=== PATIENT | male | born 1935 | race Caucasian/White ===

== ENCOUNTER → 2016-10-20 | Outpatient (CLI) | payer BC ==
[~2016-10-20] MED LIST: ASPI81TA28 PO; CHOL4POW6; EZET10TA47 PO; GLIM1TAB2 PO; METF-384 PO; METO1TAB66 PO; MULT-506 PO; PSYL55.43 PO
[2016-10-20 12:43] LABS: BLOOD UREA NITROGEN 11 mg/dl (7-18); BUN/CREATININE RATIO 12.5 (10-20); CALCIUM 9.3 mg/dl (8.5-10.1); CARBON DIOXIDE 31 mmol/L (21-32); CHLORIDE 101 mmol/L (98-107); CREATININE 0.91 mg/dl (0.60-1.40); GLUCOSE 145 mg/dl (70-99); POTASSIUM 4.3 mmol/L (3.5-5.1); SODIUM 140 mmol/L (136-145)
[2016-10-20 12:48] LABS: CHOLESTEROL/HDL RATIO 2.6; PROSTATE SPECIFIC ANTIGEN 0.607 ng/ml (0.000-4.000)
[2016-10-20 12:54] LABS: ESTIMATED AVERAGE GLUCOSE 148 mg/dl; HA1C FLAG Normal (Normal)
== END | disposition home or self-care (01) ==
LOC: C.LABPVFM 07:41
PROVIDERS: ATTEND Nurse Practitioner
DX: E11.9 Type 2 diabetes mellitus without complications (principal); Z12.5 Encounter for screening for malignant neoplasm of prostate; E78.00 Pure hypercholesterolemia, unspecified

== ENCOUNTER → 2017-04-19 | Outpatient (CLI) | payer BC ==
[2017-04-19 13:04] LABS: ESTIMATED AVERAGE GLUCOSE 151 mg/dl; HA1C FLAG Normal (Normal)
[2017-04-19 13:10] LABS: ALT/SGPT 84 U/L (12-78); BLOOD UREA NITROGEN 15 mg/dl (7-18); CARBON DIOXIDE 31 mmol/L (21-32); CHLORIDE 103 mmol/L (98-107); GLUCOSE 144 mg/dl (70-99); POTASSIUM 4.2 mmol/L (3.5-5.1); SODIUM 136 mmol/L (136-145)
[2017-04-19 13:12] LABS: ALB/GLOB RATIO 1.1 (0.9-2)
[2017-04-19 13:13] LABS: ALKALINE PHOSPHATASE 92 U/L (45-117); AST/SGOT 66 U/L (15-37)
== END | disposition home or self-care (01) ==
LOC: C.LABPVFM 07:55
PROVIDERS: ATTEND Internal Medicine Cardiovascular Disease
DX: E78.00 Pure hypercholesterolemia, unspecified (principal); I10 Essential (primary) hypertension; E11.9 Type 2 diabetes mellitus without complications; I25.10 Atherosclerotic heart disease of native coronary artery without angina pectoris

== ENCOUNTER → 2017-05-10 | Outpatient (CLI) | payer BC ==
--- NOTE | 2017-05-10 09:14 | DIAGNOSTIC IMAGING REPORT ---
ABDOMEN LIMITED (US) HISTORY: 82 years-old Male ELEVATED BILIRUBIN COMPARISON: Ultrasound of the abdominal right upper quadrant 12/29/2009 TECHNIQUE: Multiple real-time static images of the abdominal right upper quadrant were obtained assessing grayscale appearance and color flow. FINDINGS: Pancreas is partially disturbed by bowel gas with the imaged portions appearing unremarkable. Liver appears prominent in size with diffuse fatty infiltration. There is nonspecific 0.4 cm calcification of the mid liver. Focal areas of decreased echogenicity are seen near the kori hepatis involving the liver measuring up to 1.1 cm indeterminate without internal vascularity and may reflect areas of focal fatty sparing. Gallbladder is unremarkable without shadowing cholelithiasis, gallbladder wall thickening or pericholecystic fluid collections. A positive sonographic Grace sign was not reported. Common bile duct is within normal limits for patient's age, 0.6 cm. The imaged right kidney is unremarkable without hydronephrosis or shadowing calculus. IMPRESSION: 1. Unremarkable sonographic appearance of the gallbladder without evidence of cholelithiasis or acute cholecystitis. 2. Fatty infiltration of the liver with nonspecific areas of decreased echogenicity near the kori hepatis which may reflect areas of fatty sparing measuring up to approximately 1.0 cm. 3. No biliary ductal dilation. The above report was generated using voice recognition software. It may contain grammatical, syntax or spelling errors. Electronically signed by: Agustin Machuca M.D. 05/10/2017 9:12 AM Dictated Date/Time: 05/10/2017 9:08 AM
== END | disposition home or self-care (01) ==
LOC: C.ULTR 08:21
PROVIDERS: ATTEND Nurse Practitioner
DX: R17 Unspecified jaundice (principal); K76.0 Fatty (change of) liver, not elsewhere classified

== ENCOUNTER → 2017-05-24 | Outpatient (CLI) | payer BC ==
[2017-05-24 17:55] LABS: ALT/SGPT 64 U/L (12-78); BLOOD UREA NITROGEN 13 mg/dl (7-18); BUN/CREATININE RATIO 11.5 (10-20); CALCIUM 9.5 mg/dl (8.5-10.1); CARBON DIOXIDE 28 mmol/L (21-32); CHLORIDE 100 mmol/L (98-107); GLUCOSE 215 mg/dl (70-99); POTASSIUM 4.3 mmol/L (3.5-5.1); SODIUM 134 mmol/L (136-145)
[2017-05-24 17:58] LABS: ALKALINE PHOSPHATASE 114 U/L (45-117); AST/SGOT 48 U/L (15-37)
== END | disposition home or self-care (01) ==
LOC: C.LABPVFM 13:16
PROVIDERS: ATTEND Nurse Practitioner
DX: R17 Unspecified jaundice (principal)

== ENCOUNTER → 2017-11-14 | Outpatient (CLI) | payer BC ==
[~2017-11-14] MED LIST changes: +METO-452 PO; -METO1TAB66 PO
--- NOTE | 2017-11-14 10:24 | DIAGNOSTIC IMAGING REPORT ---
ABDOMEN FOR HERNIA CLINICAL HISTORY: 82 years-old Male presenting with K40.90 Inguinal herniaattn L inguinal [id number]. TECHNIQUE: Real-time grayscale ultrasound imaging of the left inguinal canal was performed for a focused evaluation at the site of clinical concern. COMPARISON: None. FINDINGS: A heterogeneously hypoechoic hernia sac is evident in the left inguinal canal compatible with fat. This does not reduce with ultrasound probe compression. A defect measuring 1.2 cm noted at the internal inguinal canal. No fluid or bowel in the hernia sac. IMPRESSION: 1. Nonreducible fat-containing left inguinal hernia without evidence of significant inflammatory change to suggest strangulation. Electronically signed by: Ceferino Dickens M.D. 11/14/2017 10:23 AM Dictated Date/Time: 11/14/2017 10:22 AM
== END | disposition home or self-care (01) ==
LOC: C.ULTR 09:41
PROVIDERS: ATTEND Nurse Practitioner
DX: K40.90 Unilateral inguinal hernia, without obstruction or gangrene, not specified as recurrent (principal)

== ENCOUNTER → 2018-05-07 | Outpatient (CLI) | payer BC ==
[2018-05-07 13:12] LABS: HEMOGLOBIN A1C 7.8 % (4.5-5.6)
[2018-05-07 15:01] LABS: ALKALINE PHOSPHATASE 98 U/L (45-117); ALT/SGPT 54 U/L (12-78); AST/SGOT 58 U/L (15-37); BLOOD UREA NITROGEN 13 mg/dl (7-18); CALCIUM 9.5 mg/dl (8.5-10.1); CARBON DIOXIDE 31 mmol/L (21-32); CREATININE 0.92 mg/dl (0.60-1.40); GLUCOSE 161 mg/dl (70-99); POTASSIUM 4.2 mmol/L (3.5-5.1); SODIUM 136 mmol/L (136-145); TOTAL PROTEIN 7.5 gm/dl (6.4-8.2)
== END | disposition home or self-care (01) ==
LOC: C.LABPVFM 16:21
PROVIDERS: ATTEND Nurse Practitioner
DX: E11.9 Type 2 diabetes mellitus without complications (principal); R17 Unspecified jaundice; I10 Essential (primary) hypertension